=== PATIENT | female | born 1985 | race Hispanic/Latino ===

== ENCOUNTER 2019-04-20 03:53 | Emergency (ER) | payer OTHER, SELFPAY ==
[2019-04-20 05:30] LABS: Bilirubin Negative (Negative); Blood, Urine Negative (Negative); Clarity CLOUDY (Clear); Glucose, Urine (Dipstick) Negative (Negative); Leukocyte Negative (Negative); Nitrite Negative (Negative); Protein, Urine (Dipstick) Negative (Neg-Trace); Specific Gravity, Urine 1.015 (1.002-1.036)
[2019-04-20 05:35] LABS: Pregnancy Test - Urine (BHCG) Negative (Negative); Pregu Control Background? CLEAR/WHITE (CLR/WHITE); Pregu Control Bar Appear? YES (CONTROL BAR); Specific Gravity 1.015 (1.002-1.036)
[2019-04-20] MEDS ORDERED: Lidocaine Viscous Sol 2% 15 ml UD Cup ONE (05:45)
[2019-04-20] MEDS ORDERED: Dicyclomine 20 MG TAB ONE (05:45)
[2019-04-20] MEDS ORDERED: Mag-Al 1200 mg/1200 mg/30 ML UDCUP ONE (05:45)
== END 2019-04-20 06:44 | disposition home or self-care (01) ==
LOC: ERS 03:53
DX: R19.8 Other specified symptoms and signs involving the digestive system and abdomen (principal)
CPT/HCPCS: 81003; 81025; 99283

== ENCOUNTER 2020-02-14 11:54 | Inpatient (IN) | payer MEDICAID, OTHER, SELFPAY ==
[~2020-02-14 11:54] MED LIST: Bupivacaine 0.25% HCL 30 ML VIAL ONE; EPHEDRINE 25 MG/5 ML SYRINGE ONE
[2020-02-14] MEDS: Lactated Ringer's 1,000 ML IV SCH ×4 (12:36→16:05)
--- NOTE | 2020-02-14 12:52 | PDOC.FPROB ---
FMR OB H&P: HPI - History of Present Illness Chief Complaint: contractions Indentification: 34yo @ 39.0 by LMP c/w 9.1wk sono History of Present Illness: 34yo @ 39.0 by LMP c/w 9.1wk sono presents for contractions. States had onset of ctx at 0400, initially spaced out and now have increased in frequency and intensity, every 4-6min now. No change in vaginal discharge, no vaginal bleeding, no LOF. Good movement. No fever/chills, recent travel, known sick contactions, SOB, CP, congestion, rhinorrhea, urinary sxs, diarrhea/ constipation. at bedside and also negative for sxs as well. Desires epidural Primary Care Physician: KAMRAN Marshall/Daryn FMR OB H&P: Current - Care : 3 Para: 1011 Gestational age: 39.0 Due date: 02/21/20 Dating Criteria: LMP c/w 9.1wk sono Course/Complications: AMA - OB Labs Blood type: A RH: negative Antibody Screen: negative HIV: negative RPR: negative HepBsAg: negative Rubella: immune Gonorrhea: negative Chlamydia: negative Pap Smear: NILM, HPV neg 1 hour gtt: 105 GBS: negative H&H: 11.2 FMR OB H&P: History - Past Medical History PMH: none - OB History OB History: n/v of , Rh negative s/p rhogam 12/04/19. SAB x1 s/p D&C. Anemia of . - [employer] History [employer] History: none - Surgical History Sx History: none - Social History Social History: no tob, illicits, etoh - Family History Family History: no family history of OB and pedi illness. FMR OB H&P: Medications - Current Home Medications: Medication Instructions Recorded Confirmed Type Pnv No.95/Ferrous Fum/Folic AC 1 tablet PO DAILY 08/04/15 10/19/15 History [ Tablet] Allergies/Adverse Reactions: Allergies Allergy/AdvReac Type Severity Reaction Status Date / Time No Known Allergies Allergy Verified 02/14/20 12:54 FMR OB H&P: ROS - Review of Systems General: denies: fever/chills, weight/appetite/sleep changes, night sweats Eyes: denies: vision changes, scotomas ENT: denies: nasal congestion, rhinorrhea, sinus pain/pressure Cardiovascular: denies: chest pain, palpitation Respiratory: denies: cough, congestion, shortness of breath Gastrointestinal: denies: abdominal pain Genitourinary (Female): reports: contractions. denies: dysuria, vaginal discharge, vaginal pain Integumentary: denies: rash FMR OB H&P: Vital Signs - Maternal Vital signs: BP 106/72, HR 92, T 98.8, RR 16 - Heart Tones Baseline: 160 Variability: moderate Acceleration: present Deceleration: absent Category: category 1 [place] contractions every: 6-8min FMR OB H&P: Physical Exam - Physical Exam General: NAD, awake, alert and oriented HEENT: EOMI, MMM, conjunctiva clear, normal nasal mucosa, oropharynx clear Neck: supple, trachea midline Heart: RRR, normal S1/S2, no murmurs/rubs/gallops, pulses present, no edema General: CTAB, no respiratory distress, good air movement, no rales/rhonchi, no wheezing Abdomen: soft, gravid, non-tender, bowel sound present, no masses Musculoskeletal: normal gait and station Neurological: no focal deficit Skin: no rash Psychiatric: good judgement and insight, normal mood and affect - Pelvic Exam SVE: /-2 Membranes: intact FMR OB H&P: A/P - Problem List (1) Third trimester Current Visit: Yes Status: Acute Code(s): Z34.93 - ENCNTR FOR SUPRVSN OF NORMAL PREG, UNSP, THIRD TRIMESTER Disposition: 34yo @ 39.0 by LMP c/w 9.1wk sono presents for contractions #SIUP @ 39.0 - contractions q6-8min, increased in frequency and intensity per pt - membranes intact - SVE 50/-2 @ 1300 - Initially tachycardia to 180s, minimal variability, no accels, no deccels -> given 1L LR and resolved - currently cat 1 strip, 160 baseline, accels, no deccels, moderate variability - cont monitoring - admit for labor management - recheck in 2-3hrs, consider augmentation if warranted - pt initially felt clammy on exam per nurse and appeared flush, resolved with IVF, denies any s/s or risk factors of COVID-19, spouse at beside and also denies any s/s or risk factors for COVID-19. VSS. No suspicion at this time for COVID 19 or any respiratory illness. #RH negative - Given rhogam on 12/04/19 - monitor for need for rhogam post delivery #Anemia of - cont iron, monitor H/H #AMA - per above PCP: ASHELY Marshall/Daryn IVF: LR @ 125cc/hr Diet: NPO with ice chips VTE: None Discussion: Date/Time: 02/14/20 7752 This H&P was discussed with Dr. Blanchard and Dr. Pineda who agree with the above documentation and plan. Addendum - Attending - Attending Attestation Date/Time: 02/14/20 [id number] I personally evaluated the patient and discussed the management with Dr. Tyler I agree with the History, Examination, Assessment and Plan documented above with any addition or exceptions noted below. initially cat 2 FHT with tachycardia 170-180. Improved to cat 1 with IV fluids. maternal pulse initially 100s-110s but resolved with IV fluids. Afebrile. Admit for latent labor with cat 2 FHT. augment if indicated. reassess in 3-4 hrs. abx if fever.
[2020-02-14] MEDS ORDERED: hydrALAZINE 20 MG/ML VIAL SLOW IVP PRN ×3 (12:57→21:30)
[2020-02-14] MEDS ORDERED: Promethazine HCl 25 MG/ML VIAL IM PRN ×2 (13:14→15:52)
[2020-02-14] MEDS ORDERED: Butorphanol Tartrate 1 MG/ML VIAL SLOW IVP PRN (13:14)
[2020-02-14] MEDS ORDERED: Ondansetron PF 4 MG/2 ML Vial IVP PRN ×2 (13:14→15:52)
[2020-02-14] MEDS ORDERED: Lidocaine 1% (PF) 30 ML VIAL SC PRN (13:14)
[2020-02-14] MEDS ORDERED: Acetaminophen 500 MG TAB PO PRN (13:14)
[2020-02-14] MEDS ORDERED: Ibuprofen 800 MG TAB PO PRN (13:14)
[2020-02-14 13:31] LABS: Mean Corpuscular HGB CONC 34.3 g/dL (32.0-36.0); Mean Corpuscular Hemoglobin 29.4 pg (27.0-31.0); Mean Corpuscular Volume 85.7 fL (78.0-98.0); Mean Platelet Volume 6.6 fL (7.4-10.4); Platelet Count 338 thou/uL (130-400); RBC Distribution Width 12.9 % (11.5-14.5); Red Blood Cell (RBC) Count 4.07 mill/uL (4.20-5.40); White Blood Cell (WBC) Count 13.3 thou/uL (4.8-10.8)
[2020-02-14 14:12] LABS: Hep B Surf Ag Non-Reactive S/CO (NonReactive); Syphilis Antibody Nonreactive (Nonreactive); Syphilis Antibody Index 0.04 S/CO (<1.00 Non-Reactive)
[2020-02-14] MEDS ORDERED: Fentanyl 4 mcg/Bup 0.1% Cadd 100 ML ONE (14:58)
[2020-02-14] MEDS ORDERED: EPHEDRINE 25 MG/5 ML SYRINGE SLOW IVP PRN (15:52)
[2020-02-14] MEDS ORDERED: Lactated Ringer's 500 ML IV PRN (15:52)
[2020-02-14] MEDS ORDERED: Acetaminophen 325 MG TAB PO PRN (15:52)
[2020-02-14] MEDS ORDERED: Naloxone HCl 0.4 mg/ml Vial IVP PRN ×2 (15:52)
[2020-02-14] MEDS ORDERED: diphenhydrAMINE 50 MG/ML VIAL IVP PRN (15:52)
[2020-02-14] MEDS ORDERED: Fentanyl 4 mcg/Bupivacaine 0.1% Cassette 100 ML EPIDURAL SCH (16:00)
[2020-02-14] MEDS ORDERED: Communication Order-Pharmacy FS SCH (16:00)
--- NOTE | 2020-02-14 16:10 | PDOC.LDPN ---
Labor & Delivery Progress Note - Subjective Subjective: comfortable - Objective Vital signs reviewed and normal: yes (SBP dropped to 60s after epidural. recovered with fluids and ephphedrine.) General: NAD Uterine fundus: non tender Dilation: 5 Effacement: 75% Station: -1 FHT: category 2, variable decelerations [place] contractions every: 2-3 min AROM: clear fluid Resuscitative measures: maternal oxygen, maternal IV fluids, maternal position change, other (ephedrine ) - Assessment (1) Third trimester Code(s): Z34.93 - ENCNTR FOR SUPRVSN OF NORMAL PREG, UNSP, THIRD TRIMESTER Current Visit: Yes Status: Acute -: labor progressing. deep decel after epidural. recovered with fluid bolus, position change, oxygen, and ephedrine. reassess in 2 hrs.
--- NOTE | 2020-02-14 20:00 | PDOC.LDPN ---
Labor & Delivery Progress Note - Subjective Subjective: comfortable - Objective Vital signs reviewed and normal: yes General: NAD, resting Uterine fundus: non tender SVE: 60/90/-1 FHT: category 2, variable decelerations [place] contractions every: 3-4min Other exam findings: SROM Plan: continue plan of care -: Doing well. Has had 2 brief variable decelerations. Continue current plan of care, recheck in 2 hours. Will call [place] Marshall in for delivery.
[2020-02-14 20:08] VITALS: BMI 32.5
[2020-02-14] MEDS ORDERED: Lidocaine 1% (PF) 30 ML VIAL ONE (20:51)
[2020-02-14] MEDS ORDERED: NS / Oxytocin 40 units/1000ml 1,000 ML ONE (20:51)
[2020-02-14] MEDS: NS / Oxytocin 40 units/1000ml 1,000 ML IV PRN ×2 (21:15→22:17)
[2020-02-14] MEDS ORDERED: Bisacodyl 10 MG SUPP PR PRN (21:30)
[2020-02-14] MEDS ORDERED: Milk Of Magnesia 30 ML UDCUP PO PRN (21:30)
[2020-02-14] MEDS ORDERED: Benzocaine-Menthol 82.5 ML CAN TOP PRN (21:30)
--- NOTE | 2020-02-14 21:40 | PDOC.OPDEL ---
OB Operative/Delivery Note - Additional Findings/Plan Compilations/Other Findings: Vaginal Delivery note Delivering Physician: Tony Marshall Attending: Procedure: Spontaneous Vaginal Delivery Anesthesia: Epidural QBL: 100 ml Pre-op Diagnosis: 1. Term intrauterine in labor 2. Hx of rh negative, AMA Post-op Diagnosis: 1. Term intrauterine , delivered 2. same as above Indications: A 34 y/o female presented in labor. Delivery Note: This is 34 y/o female @ 39.0 wks who delivered a viable M infant at 2105. Following an uneventful antepartum course, a vigorous M was delivered over an intact perineum in the occipitoanterior position. Anterior Shoulder and then remainder of the body delivered. No nuchal cord. The head was held down and mouth and nares were bulb suctioned. Cord clamped and cut and cord blood collected. Placenta delivered intact with a 3 vessel cord noted. Fundal massage was performed and the fundus was firm. Laceration noted and repaired with 3-0 vicryl in the usual fashion with good approximation and hemostasis. Infant went to nursery in good condition for routine care. Apgars were 8/9 at 1 & 5 minutes, respectively. Patient tolerated delivery well and went to after routine recovery/care.
[2020-02-15] MEDS: Ibuprofen 800 MG TAB PO SCH ×4 (01:39→21:20)
--- NOTE | 2020-02-15 06:16 | PDOC.PP ---
Post Progress Note Post Day #: 1 Subjective: Doing well. Complains of mild headache. PO intake tolerated: yes Flatus: yes Ambulation: yes Vital Signs (12 hours) Temp Pulse Resp BP Pulse Ox 02/15/20 02:25 98.4 F 71 16 106/62 02/15/20 01:05 98.4 F 77 16 96/54 L 02/15/20 00:01 98.9 F 85 16 101/59 L 98 Weight Weight 78.018 kg - Physical Examination General: NAD Cardiovascular: no m/r/g, RRR Respiratory: clear to auscultation bilaterally, non-labored breathing Abdominal: + bowel sounds, lochia, no distention, appropriately TTP Neurological: no gross focal deficits Psychiatric: A&Ox3, normal affect Result Diagrams: 02/14/20 13:13 Additional Labs: Post Labs Blood Type A NEGATIVE 02/14/20 13:13 Hep Bs Antigen Non-Reactive S/CO (NonReactive) 02/14/20 13:13 (1) Normal vaginal delivery Code(s): O80 - ENCOUNTER FOR FULL-TERM UNCOMPLICATED DELIVERY Status: Acute - Assessment/Plan 34yo G3 now P2012 delivered via @ 2105 02/14/2020 to a ARJUN [place] . No complications during delivery. PPD #1 - Routine PP care. Normal lochia. Pain is well controlled - Recommend f/u in [address] Marshall. - Patient does not know what she wants to do in regards to control. - Patient is eager to go home, she is a possible 24hour discharge, pending baby' s bilirubin. - Bottle feeding. - Rh -, baby is A-, does not require rhogam. Yfn THOMAS Addendum - Attending - Attending Attestation Date/Time: 02/15/20 [id number] I personally evaluated the patient and discussed the management with Dr. Jimenez I agree with the History, Examination, Assessment and Plan documented above with any addition or exceptions noted below. d/c home later today if baby stable for d/c.
[2020-02-15] MEDS ORDERED: Acetaminophen 500 MG TAB PO SCH (06:45)
[2020-02-15] MEDS: Prenatal Vitamin 1 TAB PO SCH (08:45)
[2020-02-15] MEDS: Ferrous Sulfate 325 MG TAB PO SCH ×2 (08:45→15:43)
[2020-02-15] MEDS: Docusate Calcium (SURFAK) 240 MG CAP PO SCH ×2 (08:46→21:20)
[2020-02-15] MEDS ORDERED: Adacel (T-DAP) 0.5 ML SYRINGE IM ONE (09:00)
[2020-02-16] MEDS: Ibuprofen 800 MG TAB PO SCH (05:41)
--- NOTE | 2020-02-16 06:44 | PDOC.PP ---
Post Progress Note Post Day #: 2 Subjective: Doing well, no concerns. PO intake tolerated: yes Flatus: yes Ambulation: yes Vital Signs (12 hours) Temp Pulse Resp BP Pulse Ox 02/15/20 20:15 98.6 F 61 16 98/57 L 96 Weight Weight 78.018 kg - Physical Examination General: NAD Cardiovascular: no m/r/g, RRR Respiratory: clear to auscultation bilaterally, non-labored breathing Abdominal: + bowel sounds, lochia, no distention, appropriately TTP Neurological: no gross focal deficits Psychiatric: A&Ox3, normal affect Result Diagrams: 02/14/20 13:13 Additional Labs: Post Labs Blood Type A NEGATIVE 02/14/20 13:13 Hep Bs Antigen Non-Reactive S/CO (NonReactive) 02/14/20 13:13 (1) Normal vaginal delivery Code(s): O80 - ENCOUNTER FOR FULL-TERM UNCOMPLICATED DELIVERY Status: Acute - Assessment/Plan 34yo G3 now P2012 delivered via @ 2105 02/14/2020 to a ARJUN M infant. No complications during delivery. PPD #2 - Routine PP care. Normal lochia. Pain is well controlled - Recommend f/u in [address] Marshall. - Patient does not know what she wants to do in regards to control. - Bottle feeding. And pumping breast milk. - Rh -, baby is A-, does not require rhogam. - Baby's bili was HIR. Recheck at 36HOL and consider d/c. Yfn THOMAS Addendum - Attending - Attending Attestation Date/Time: 02/16/20 1017 I personally evaluated the patient and discussed the management with Dr. Jimenez I agree with the History, Examination, Assessment and Plan documented above with any addition or exceptions noted below. d/c home today.
[2020-02-16 07:57] VITALS: BP 103/62; TEMP 98
[2020-02-16] MEDS: Ferrous Sulfate 325 MG TAB PO SCH (08:29)
[2020-02-16] MEDS: Prenatal Vitamin 1 TAB PO SCH (08:31)
[2020-02-16] MEDS: Docusate Calcium (SURFAK) 240 MG CAP PO SCH (08:31)
== END 2020-02-16 12:10 | disposition home or self-care (01) | DRG 807 ==
LOC: L&D/OP 11:54 → L&D 13:23 → 3SW 02-15 00:20 → EDSTATUS 02-25 19:15
PROVIDERS: ADMIT Family Medicine; ATTEND Family Medicine
PROC: 10E0XZZ Delivery of Products of Conception, External Approach (ICD-10-PCS; principal; 2020-02-14)
PROC: 0KQM0ZZ Repair Perineum Muscle, Open Approach (ICD-10-PCS; 2020-02-14)
DX: O99.02 Anemia complicating childbirth (principal); Z37.0 Single live birth; D64.9 Anemia, unspecified; O70.1 Second degree perineal laceration during delivery; Z3A.39 39 weeks gestation of pregnancy
CPT/HCPCS: 51702; 85027; 86780; 86850; 86900; 86901; 87340; 99285; J2001; J2405; S0020

== ENCOUNTER 2021-07-31 07:43 | Inpatient (IN) | payer SELFPAY ==
[2021-07-31 08:28] LABS: #Lymphocytes 1.4 thou/uL (1.20-3.40); #Monocytes 0.3 thou/uL (0.11-0.59); #Neutrophils 8.2 thou/uL (1.40-6.50); %Basophils 0.3 % (0.0-1.0); %Eosinophils 0.1 % (0.0-10.0); %Lymphocytes 14.3 % (21.0-51.0); %Monocytes 3.5 % (0.0-10.0); Hemoglobin 14.9 g/dL (12.0-16.0); Mean Corpuscular HGB CONC 32.7 g/dL (32.0-36.0); Mean Corpuscular Hemoglobin 27.7 pg (27.0-31.0); Mean Corpuscular Volume 84.9 fL (78.0-98.0); Mean Platelet Volume 7.4 fL (7.4-10.4); Platelet Count 267 thou/uL (130-400); RBC Distribution Width 12.6 % (11.5-14.5); Red Blood Cell (RBC) Count 5.38 mill/uL (4.20-5.40); White Blood Cell (WBC) Count 9.9 thou/uL (4.8-10.8)
[2021-07-31 08:42] LABS: Prothrombin Time 13.6 sec (12.0-14.7)
[2021-07-31] MEDS ORDERED: Azithromycin 500 MG VIAL ONE (08:42)
[2021-07-31] MEDS ORDERED: cefTRIAXone\\ROCEPHIN 2 GM VIAL ONE (08:42)
[2021-07-31] MEDS ORDERED: Aspirin 325 MG TAB ONE (08:43)
[2021-07-31 08:50] LABS: ALT (SGPT) 24 U/L (8-55); AST (SGOT) 33 U/L (5-34); Alkaline Phosphatase 49 U/L (40-110); Anion Gap 16 mmol/L (10-20); BUN (Urea Nitrogen) 9 mg/dL (7.0-18.7); Bilirubin, Total 0.6 mg/dL (0.2-1.2); Calc. Creatinine Clearance 0 mL/min (70-130); Carbon Dioxide 21 mmol/L (22-29); Chloride 102 mmol/L (98-107); Globulin 3.9 g/dL (2.4-3.5); Glucose 136 mg/dL (70-105); Potassium 3.3 mmol/L (3.5-5.1); Protein, Total 7.9 g/dL (6.0-8.3); Sodium 136 mmol/L (136-145)
[2021-07-31 09:06] LABS: BHCG - Serum Negative (NEGATIVE); Pregs Control Background? CLEAR/WHITE (CLR/WHITE); Pregs Control Bar Appear? YES (CONTROL BAR)
[2021-07-31] MEDS ORDERED: Dexamethasone 10 MG/ML VIAL ONE (09:29)
[2021-07-31] MEDS ORDERED: Acetaminophen 500 MG TAB ONE (09:30)
[2021-07-31] MEDS ORDERED: Enoxaparin Sodium 80 MG/0.8 ML SYRINGE ONE (09:47)
[2021-07-31 10:26] LABS: Bacteria/HPF None Seen HPF (None Seen); Bilirubin Negative (Negative); Blood, Urine Trace (Negative); Clarity Clear (Clear); Glucose, Urine (Dipstick) Normal (Negative); Ketone, Urine 20 mg/dL (Negative); Leukocyte Negative Leu/uL (Negative); Nitrite Negative (Negative); Protein, Urine (Dipstick) 100 mg/dL (Neg-Trace); Urobilinogen Normal mg/dL (Less than 2); WBC/HPF 0-3 HPF (0-3); pH, Urine 6.5 (5.0-9.0)
[2021-07-31 10:28] LABS: Specific Gravity, Urine Greater than 1.060 (1.002-1.036)
[2021-07-31] MEDS ORDERED: Iopamidol-370 76% 500 ML 1 ML ONE (10:41)
[2021-07-31] MEDS ORDERED: Ondansetron ODT 4 MG TAB PO PRN (11:19)
[2021-07-31] MEDS ORDERED: Benzonatate 100 MG CAP PO PRN ×2 (11:20→11:25)
[2021-07-31 11:22] LABS: SARS-CoV-2 NAA Rapid Test DETECTED (NotDetected)
[2021-07-31] MEDS ORDERED: Potassium Chloride 20 MEQ TAB PO SCH (11:30)
[2021-07-31] MEDS ORDERED: Potassium Chloride 20 MEQ TAB ONE (12:05)
[2021-07-31] MEDS: Enoxaparin Sodium 40 MG/0.4 ML SYRINGE SC SCH (19:29)
[2021-07-31] MEDS: Acetaminophen 325 MG TAB PO PRN (23:58)
[2021-08-01 07:33] LABS: #Lymphocytes 1.1 thou/uL (1.20-3.40); #Monocytes 0.5 thou/uL (0.11-0.59); #Neutrophils 8.4 thou/uL (1.40-6.50); %Basophils 0.3 % (0.0-1.0); %Eosinophils 0.1 % (0.0-10.0); %Lymphocytes 10.8 % (21.0-51.0); %Monocytes 4.8 % (0.0-10.0); Hemoglobin 12.6 g/dL (12.0-16.0); Mean Corpuscular HGB CONC 34.1 g/dL (32.0-36.0); Mean Corpuscular Hemoglobin 29.4 pg (27.0-31.0); Mean Corpuscular Volume 86.3 fL (78.0-98.0); Mean Platelet Volume 7.2 fL (7.4-10.4); Platelet Count 261 thou/uL (130-400); RBC Distribution Width 12.3 % (11.5-14.5); Red Blood Cell (RBC) Count 4.28 mill/uL (4.20-5.40)
[2021-08-01 08:19] LABS: Anion Gap 13 mmol/L (10-20); BUN (Urea Nitrogen) 9 mg/dL (7.0-18.7); Calc. Creatinine Clearance 146 mL/min (70-130); Calcium 8.5 mg/dL (7.8-10.44); Carbon Dioxide 26 mmol/L (22-29); Chloride 105 mmol/L (98-107); Glucose 116 mg/dL (70-105); Magnesium 2.2 mg/dL (1.6-2.6); Potassium 3.4 mmol/L (3.5-5.1); Sodium 141 mmol/L (136-145)
[2021-08-01] MEDS: Zinc Sulfate 220 MG CAP PO SCH (08:22)
[2021-08-01] MEDS: Cholecalciferol 1,000 UNITS (25 MCG) TAB PO SCH (08:22)
[2021-08-01] MEDS: Dexamethasone 4 mg/ml Vial SLOW IVP SCH (08:23)
[2021-08-01] MEDS: Ascorbic Acid 500 mg Chewable Tablet PO SCH (08:23)
[2021-08-01] MEDS: Enoxaparin Sodium 40 MG/0.4 ML SYRINGE SC SCH ×2 (08:24→20:19)
[2021-08-01] MEDS ORDERED: Lidocaine 1% w/Epinephrine 1:100K 20 ML VIAL ONE ×2 (08:52)
[2021-08-01 12:33] VITALS: BMI 29.7
[2021-08-01] MEDS: Albuterol 200 PUFF (6.7GM INHALER) INH SCH (20:19)
[2021-08-01] MEDS: Guaifenesin DM 100-10/5 ML UDCUP PO PRN (20:38)
[2021-08-02] MEDS: Albuterol 200 PUFF (6.7GM INHALER) INH SCH ×4 (01:47→18:00)
[2021-08-02] MEDS: Guaifenesin DM 100-10/5 ML UDCUP PO PRN ×2 (08:37→20:17)
[2021-08-02] MEDS: Dexamethasone 4 mg/ml Vial SLOW IVP SCH (08:39)
[2021-08-02] MEDS: Zinc Sulfate 220 MG CAP PO SCH (08:41)
[2021-08-02] MEDS: Ascorbic Acid 500 mg Chewable Tablet PO SCH (08:41)
[2021-08-02] MEDS: Cholecalciferol 1,000 UNITS (25 MCG) TAB PO SCH (08:42)
[2021-08-02] MEDS: Enoxaparin Sodium 40 MG/0.4 ML SYRINGE SC SCH ×2 (10:13→20:16)
[2021-08-02] MEDS: Acetaminophen 325 MG TAB PO PRN (20:18)
[2021-08-03] MEDS: Albuterol 200 PUFF (6.7GM INHALER) INH SCH ×4 (01:57→18:29)
[2021-08-03 06:58] LABS: #Lymphocytes 1.2 thou/uL (1.20-3.40); #Monocytes 0.7 thou/uL (0.11-0.59); #Neutrophils 7.4 thou/uL (1.40-6.50); %Eosinophils 0.2 % (0.0-10.0); %Monocytes 7.4 % (0.0-10.0); %Neutrophils 79.4 % (42.0-75.0); Hemoglobin 12.9 g/dL (12.0-16.0); Mean Corpuscular HGB CONC 33.5 g/dL (32.0-36.0); Mean Corpuscular Hemoglobin 28.6 pg (27.0-31.0); Mean Corpuscular Volume 85.4 fL (78.0-98.0); Mean Platelet Volume 7.2 fL (7.4-10.4); Platelet Count 325 thou/uL (130-400); RBC Distribution Width 12.2 % (11.5-14.5); Red Blood Cell (RBC) Count 4.51 mill/uL (4.20-5.40); White Blood Cell (WBC) Count 9.3 thou/uL (4.8-10.8)
[2021-08-03 07:21] LABS: Anion Gap 13 mmol/L (10-20); BUN (Urea Nitrogen) 12 mg/dL (7.0-18.7); CRP (Inflammatory) 1.21 mg/dL (= or < 0.5); Calc. Creatinine Clearance 167 mL/min (70-130); Calcium 8.3 mg/dL (7.8-10.44); Carbon Dioxide 29 mmol/L (22-29); Chloride 103 mmol/L (98-107); Glucose 124 mg/dL (70-105); Potassium 3.8 mmol/L (3.5-5.1); Sodium 141 mmol/L (136-145)
[2021-08-03] MEDS: Cholecalciferol 1,000 UNITS (25 MCG) TAB PO SCH (08:42)
[2021-08-03] MEDS: Ascorbic Acid 500 mg Chewable Tablet PO SCH (08:42)
[2021-08-03] MEDS: Zinc Sulfate 220 MG CAP PO SCH (08:42)
[2021-08-03] MEDS: Dexamethasone 4 mg/ml Vial SLOW IVP SCH (08:43)
[2021-08-03] MEDS: Enoxaparin Sodium 40 MG/0.4 ML SYRINGE SC SCH ×2 (08:43→20:13)
[2021-08-03] MEDS: Guaifenesin DM 100-10/5 ML UDCUP PO PRN ×2 (09:33→20:14)
[2021-08-03] MEDS: Acetaminophen 325 MG TAB PO PRN (20:14)
[2021-08-04] MEDS: Albuterol 200 PUFF (6.7GM INHALER) INH SCH ×4 (00:22→18:38)
[2021-08-04] MEDS: Dexamethasone 4 mg/ml Vial SLOW IVP SCH (08:30)
[2021-08-04] MEDS: Enoxaparin Sodium 40 MG/0.4 ML SYRINGE SC SCH ×2 (08:30→20:11)
[2021-08-04] MEDS: Cholecalciferol 1,000 UNITS (25 MCG) TAB PO SCH (08:31)
[2021-08-04] MEDS: Zinc Sulfate 220 MG CAP PO SCH (08:32)
[2021-08-04] MEDS: Ascorbic Acid 500 mg Chewable Tablet PO SCH (08:32)
[2021-08-04] MEDS: Acetaminophen 325 MG TAB PO PRN (20:11)
[2021-08-04] MEDS: Guaifenesin DM 100-10/5 ML UDCUP PO PRN (20:12)
[2021-08-05] MEDS: Albuterol 200 PUFF (6.7GM INHALER) INH SCH ×3 (00:52→13:17)
[2021-08-05] MEDS: Dexamethasone 4 mg/ml Vial SLOW IVP SCH (08:08)
[2021-08-05] MEDS: Cholecalciferol 1,000 UNITS (25 MCG) TAB PO SCH (08:09)
[2021-08-05] MEDS: Enoxaparin Sodium 40 MG/0.4 ML SYRINGE SC SCH (08:09)
[2021-08-05] MEDS: Ascorbic Acid 500 mg Chewable Tablet PO SCH (08:10)
[2021-08-05] MEDS: Zinc Sulfate 220 MG CAP PO SCH (08:10)
[2021-08-05 16:57] VITALS: BP 112/78; TEMP 98.2
== END 2021-08-05 17:41 | disposition home or self-care (01) | DRG 871 ==
LOC: ERS 07:43 → ERHOLD 09:38 → T4-B 18:21
PROVIDERS: ADMIT Emergency Medicine; ATTEND Internal Medicine
PROC: 8E0ZXY6 Isolation (ICD-10-PCS; principal; 2021-07-31)
DX: A41.89 Other specified sepsis (principal); U07.1 COVID-19; J12.82 Pneumonia due to coronavirus disease 2019; J96.01 Acute respiratory failure with hypoxia; E66.3 Overweight; E87.6 Hypokalemia; Z68.29 Body mass index [BMI] 29.0-29.9, adult; Z90.49 Acquired absence of other specified parts of digestive tract; Z79.899 Other long term (current) drug therapy
CPT/HCPCS: 36415; 71045; 71275; 80048; 80053; 81003; 81015; 82550; 82728; 83605; 83735; 84484; 84703; 85025; 85379; 85610; 85730; 86140; 87040; 93005; 94760; 96365; 96367; 96372; 96375; J0456; J0696; J1100; J1650; Q9967; U0002

== ENCOUNTER 2022-09-25 21:10 | Emergency (ER) | payer SELFPAY ==
[2022-09-25 22:23] LABS: #Lymphocytes 2.4 thou/uL (1.20-3.40); #Monocytes 0.4 thou/uL (0.11-0.59); #Neutrophils 2.5 thou/uL (1.40-6.50); %Basophils 0.2 % (0.0-1.0); %Eosinophils 0.3 % (0.0-10.0); %Lymphocytes 44.4 % (21.0-51.0); %Monocytes 8.1 % (0.0-10.0); BHCG - Serum Negative (NEGATIVE); Hemoglobin 13.8 g/dL (12.0-16.0); Mean Corpuscular HGB CONC 35.4 g/dL (32.0-36.0); Mean Corpuscular Hemoglobin 30.4 pg (27.0-31.0); Mean Platelet Volume 7.2 fL (7.4-10.4); Platelet Count 296 thou/uL (130-400); Pregs Control Background? CLEAR/WHITE (CLR/WHITE); Pregs Control Bar Appear? YES (CONTROL BAR); Red Blood Cell (RBC) Count 4.54 mill/uL (4.20-5.40); White Blood Cell (WBC) Count 5.4 thou/uL (4.8-10.8)
[2022-09-25] MEDS ORDERED: Morphine 4 MG/ML VIAL ONE (22:30)
[2022-09-25] MEDS ORDERED: Ondansetron PF 4 MG/2 ML Vial ONE (22:30)
[2022-09-25 22:41] LABS: ALT (SGPT) 20 U/L (8-55); AST (SGOT) 21 U/L (5-34); Albumin 4.1 g/dL (3.5-5.0); Alkaline Phosphatase 48 U/L (40-110); Anion Gap 14 mmol/L (10-20); BUN (Urea Nitrogen) 11 mg/dL (7.0-18.7); Bilirubin, Total 0.4 mg/dL (0.2-1.2); Calc. Creatinine Clearance 0 mL/min (70-130); Carbon Dioxide 22 mmol/L (22-29); Chloride 106 mmol/L (98-107); Estimated GFR 93; Globulin 3.3 g/dL (2.4-3.5); Glucose 100 mg/dL (70-105); Lipase 32 U/L (8-78); Potassium 3.2 mmol/L (3.5-5.1); Protein, Total 7.4 g/dL (6.0-8.3); Sodium 139 mmol/L (136-145)
[2022-09-25 23:20] LABS: Bacteria/HPF None Seen HPF (None Seen); Bilirubin Negative (Negative); Blood, Urine Negative (Negative); Clarity Clear (Clear); Glucose, Urine (Dipstick) Normal (Negative); Ketone, Urine 100 mg/dL (Negative); Leukocyte 75 Leu/uL (Negative); Nitrite Negative (Negative); Protein, Urine (Dipstick) 30 mg/dL (Neg-Trace); RBC/HPF None Seen HPF (0-3); Specific Gravity, Urine 1.027 (1.002-1.036); Urobilinogen Normal mg/dL (Less than 2)
== END 2022-09-25 23:56 | disposition home or self-care (01) ==
LOC: ERS 21:10
DX: R10.13 Epigastric pain (principal)
CPT/HCPCS: 36415; 74177; 80053; 81003; 81015; 83690; 84703; 85025; J2270; J2405

== ENCOUNTER 2023-01-21 22:36 | Emergency (ER) | payer SELFPAY ==
[2023-01-21] MEDS ORDERED: Famotidine 20 MG TAB ONE (23:10)
[2023-01-21] MEDS ORDERED: diphenhydrAMINE 25 MG CAP ONE (23:10)
[2023-01-21] MEDS ORDERED: predniSONE 20 MG TAB ONE (23:56)
[2023-01-22] MEDS ORDERED: EPINEPHrine 1 MG/10 ML Abboject SYRINGE ONE (00:33)
[2023-01-22] MEDS ORDERED: EPINEPHrine 1 MG/ML VIAL ONE (00:36)
== END 2023-01-22 02:10 | disposition home or self-care (01) ==
LOC: ERS 22:36
DX: L29.9 Pruritus, unspecified (principal)
CPT/HCPCS: 96372; 99282; J0171; J7512